=== PATIENT | female | born 1990 | race Caucasian/White ===

== ENCOUNTER 2017-07-28 05:36 | Inpatient (IN) ==
[2017-07-28] MEDS ORDERED: D5LR 1,000 ML IV PRN (05:47)
[2017-07-28] MEDS ORDERED: OXYTOCIN DRIP 30 UNIT/500 ML ML IV PRN (05:47)
[2017-07-28] MEDS ORDERED: CALCIUM CARBONATE Chewable 500mg TABLET PO PRN ×2 (05:47→14:25)
[2017-07-28] MEDS ORDERED: LIDOCAINE 1% (10mg/ml) 2mL INJ PF SDV ID PRN (05:47)
[2017-07-28] MEDS ORDERED: METHYLERGONOVINE 0.2 MG/ML INJECTION IM PRN (05:47)
[2017-07-28] MEDS ORDERED: ACETAMINOPHEN 500 MG TABLET PO PRN ×2 (05:47→14:25)
[2017-07-28] MEDS ORDERED: CARBOPROST 250 MCG/ML INJECTION IM PRN (05:47)
[2017-07-28] MEDS ORDERED: MAG-AL + SIM ORAL LIQUID 30ml PO PRN ×2 (05:47→14:25)
[2017-07-28] MEDS ORDERED: D5LR 1,000 ML IV SCH (06:00)
[2017-07-28] MEDS: LR 1,000 ML IV PRN ×3 (06:14→11:48)
[2017-07-28 06:39] VITALS: BMI 43.8
--- NOTE | 2017-07-28 07:19 | Anesthesia Preoperative Report ---
Anesthesia Epidural/Spinal Rec - Date and Time Date: 07/28/17 Procedure: Labor Epidural Plan: Epidural - Vital Signs Vital Signs: Temperature 98.5 F 07/28/17 06:45 Pulse Rate 100 07/28/17 06:45 Respiratory Rate 16 07/28/17 06:45 Blood Pressure 113/58 07/28/17 06:45 Pulse Oximetry 98 07/28/17 06:45 /Para: P:4 - Medictaions & Allergies Inpatient Medications: Current Medications Acetaminophen (Tylenol) 500 - 1,000 mg PO Q4H PRN PRN Reason: Pain Al Hydroxide/Mg Hydroxide (Maalox Plus) 30 ml PO Q3H PRN PRN Reason: Indigestion Calcium Carbonate (Tums) 500 - 1,000 mg PO Q2H PRN PRN Reason: Indigestion Carboprost Tromethamine (Hemabate) 250 mcg IM O PRN PRN Reason: .Downtime Dextrose/Lactated Ringer's (Dextrose 5%-Lactated Ringers) 1,000 mls @ 125 mls/ hr IV .Q8H DAWIT Last Admin: 07/28/17 06:15 Dose: 125 mls/hr Lactated Ringer's (Lactated Ringers) 1,000 mls @ 999 mls/hr IV .Q1H1M PRN Last Admin: 07/28/17 06:14 Dose: 999 mls/hr Oxytocin (Pitocin Drip) 30 unit in 500 mls @ 2 mls/hr IV .Q24H PRN; Protocol PRN Reason: Induction/Augmentation Last Admin: 07/28/17 06:16 Dose: 2 mls/hr Dextrose/Lactated Ringer's (Dextrose 5%-Lactated Ringers) 1,000 mls @ 125 mls/ hr IV .Q8H PRN PRN Reason: Labor Lidocaine HCl (Xylocaine-Mpf 1% Vial) 0.2 mg ID O PRN PRN Reason: IV Start Methylergonovine Maleate (Methergine) 0.2 mg IM O PRN Misoprostol (Cytotec) 800 mcg GA ONCE PRN Allergies/Adverse Reactions: Allergies Allergy/AdvReac Type Severity Reaction Status Date / Time No Known Drug Allergies Allergy Unknown Unverified 02/23/17 18:18 - Home Medications Home Medications: Home Medications Medication Instructions Recorded Confirmed Type Vits W-Ca,Fe,Fa(<1MG) 1 tab PO DAILY #0 04/08/10 History () Amox Tr/Potassium Clavulanate 1 tab PO BID #0 01/25/13 History (Amox Tr-K Clv 500-125 Mg Tab) Ondansetron HCl [Zofran] 4 mg PO PRN #0 01/25/13 History - Medical History Gastrointestional: Reports: Morbid Obesity Neuro/Musculoskeletal: Reports: Depression ( depression) Renal/Endocrine: Reports: Thyroid Disease (Hypothyroid) Other History: Reports: Now - Surgical History GI Surgery/Treatments: Reports: Colonoscopy (2013) Reproductive Surgery/Treatment: Reports: Other (LEEP simple) DENIES: Section Anesthesia Reactions: None Hx Family Anesthesia Reaction: No History of Motion Sickness: No - Social History Smoking Status: Never smoker Second Hand Exposure: No Substance Use Type: does not use Alcohol Intake Frequency: does not drink - Pertinent Findings Lab Data: CBC and BMP 07/28/17 06:08 EKG Rhythm: Normal Sinus Rhythm - Physical Exam Respiratory Exam: lungs clear Cardiovascular Exam: regular rate and rhythm - Airway Assessment Teeth: other (tongue piercing) Overall Assessment: no airway concerns - ASA ASA Score: 2 - Discussion Discussion: Discussed risks/options/alternatives of anesthesia and questions answered. Patient consents. Nursing pain assessment noted. Attestation Statement: Prior to the delivery of any anesthetic medication, I examined the patient, developed the plan, obtained the patient's consent and discussed the risk and benefits of the procedure with the patient/guardian.
[2017-07-28] MEDS ORDERED: ROPIVACAINE 1% 10MG/ML INJ 200 MG, SUFentanil 50 MCG in NS 100 ML EPI PRN (09:48)
[2017-07-28] MEDS ORDERED: NALOXONE 0.4 MG/ML INJECTION IVP PRN (09:48)
[2017-07-28] MEDS ORDERED: DiphenhydrAMINE 50 MG/ML INJECTION IVP PRN (09:48)
[2017-07-28] MEDS: ONDANSETRON 4 MG/2 ML INJECTION IVP PRN ×2 (10:35→19:52)
[2017-07-28] MEDS ORDERED: IBUPROFEN 800 MG TABLET PO PRN (14:25)
[2017-07-28] MEDS ORDERED: OXYTOCIN DRIP 30 UNIT/500 ML ML IV SCH (14:25)
[2017-07-28] MEDS ORDERED: DiphenhydrAMINE 25 MG CAPSULE PO PRN (14:25)
[2017-07-28] MEDS ORDERED: HYDROCODONE/APAP 5mg/325mg TABLET PO PRN (14:25)
[2017-07-28] MEDS ORDERED: HYDROCORTISONE 2.5% CREAM 30gm RECTALLY PRN (14:25)
[2017-07-28] MEDS ORDERED: BENZOCAINE 20% SPRAY 0.5 ML MM ONE (14:25)
[2017-07-28] MEDS ORDERED: LR 1,000 ML IV SCH (16:30)
[2017-07-28] MEDS ORDERED: METOCLOPRAMIDE 10mg/2ml INJECTION IVP PRN (16:30)
[2017-07-28] MEDS ORDERED: ONDANSETRON 4 MG/2 ML INJECTION IVP PRN (16:30)
[2017-07-28] MEDS ORDERED: HYDROMORPHONE 2 MG/ML INJECTION IVP PRN (16:30)
[2017-07-28] MEDS ORDERED: PROPOFOL 500 MG/50 ML VIAL IV ONE ×2 (16:37→17:05)
[2017-07-28] MEDS ORDERED: BUPIVACAINE 0.25% (2.5mg/ml) PF 30ml INJECTION ONE (16:37)
[2017-07-28] MEDS ORDERED: BUPIVACAINE 0.25% (2.5mg/ml) PF 30ml INJECTION ID ONE (16:42)
--- NOTE | 2017-07-28 16:51 | Labor and Delivery Note ---
DIAGNOSES 1. 26-year-old white female, G5, P4 at 39.0 weeks gestational age. 2. Pitocin induction of labor for history of macrosomia. 3. Hypothyroid. 4. Epidural anesthesia. 5. AROM. 6. Spontaneous vaginal delivery. 7. Male , 8/9 Apgars, 38 24 g (Santosh Villarreal). 8. Desires permanent sterilization. DESCRIPTION This is a patient of mine I brought in for induction secondary to history of macrosomia. She is 39.0 weeks gestational age. Pitocin reached a maximum of 20 mu/min. AROM occurred after her epidural and she progressed in dilation until she was complete and ready to push. With a very short amount of pushing we had a delivery in the OA position. was bulb suctioned after delivery of the head and then again after delivery of the body. Cord was doubly clamped and cut and the 's father cut the cord. The infant initially went to the mother's abdomen. Perineum was intact. The placenta delivered spontaneously and was intact. The patient desires tubal ligation so we will be doing that shortly. Maternal blood type is O-negative, so a tube of blood was obtained. GBS was negative and rubella was immune. MTDD
[2017-07-28] MEDS ORDERED: LIDOCAINE 2%/EPI 1:200,000 20ml SDV PF ONE (17:06)
--- NOTE | 2017-07-28 17:37 | OB/GYN Procedure Note ---
Operative Note Date of Surgery: 07/28/17 Preoperative Diagnosis:desires sterilization Postoperative Diagnosis:same Procedure: Modified [place] PPTL Surgeon:Sebastien Stacy MD In Flight Refueling Operator: EBL: min Anesthesia: epid by monique cardenas Complications:none
[2017-07-28] MEDS ORDERED: MORPHINE SULFATE PF 5mg/10ml INJ (Duramorph) ONE (17:38)
[2017-07-28] MEDS ORDERED: NEOMYCIN/POLYMYXIN/BACITRACIN OINT PACKET TP PRN (17:59)
--- NOTE | 2017-07-28 18:11 | Anesthesia Postoperative Note ---
- Date and Time Date: 07/28/17 Time: 18:11 - Status Patient Participated in Evaluation: Patient Participated in Person Vital Signs: Temperature 98.2 F 07/28/17 17:44 Pulse Rate 94 07/28/17 18:00 Respiratory Rate 20 07/28/17 18:00 Blood Pressure 114/60 07/28/17 18:00 Pulse Oximetry 98 07/28/17 18:00 Respiratory Function: Airway Patent Cardiovascular Function: Regular Pulse EKG: Sinus Rhythm Mental Status: Alert and Oriented Pain Intensity: 3 Hydration: IV Infusing Complications During Recover: None Apparent - Follow-Up Instructions Instructions: Per Surgeon
[2017-07-28] MEDS ORDERED: DimenhyDRINATE 50 MG in LR 1,000 ML IV SCH (21:45)
[2017-07-29] MEDS ORDERED: DOCUSATE CALCIUM 240 MG CAPSULE PO SCH (09:00)
--- NOTE | 2017-07-29 09:17 | OB/GYN Progress Note ---
OB-PP Progress Note - General PPD1 Maternal Group B Strep: Negative Maternal blood type: O- Maternal Rubella Status: Immune General: Baby B neg - Subjective Date: 07/29/17 Lochia: Minimal Pain: controlled Voiding: voiding - Objective Vital Signs: Last Vital Signs Temp 98 F 07/29/17 02:20 Pulse 83 07/29/17 02:20 Resp 16 07/29/17 02:20 BP 120/67 07/29/17 02:20 Pulse Ox 100 07/29/17 02:20 General: alert and oriented Abdomen: fundus firm, non-tender Incision: clean, intact, dressed Extremities: non-tender Laboratory: Laboratory Results - last 24 hr 07/28/17 07/29/17 14:25 05:26 WBC 10.7 RBC 3.69 L Hgb 10.1 L Hct 32.2 L MCV 87.3 MCH 27.4 MCHC 31.4 RDW Std Deviation 46.4 Plt Count 155 MPV 9.9 RhIG Candidate? Not a candidate - Assessment Assessment: , Tubal Ligation - Plan Plan: routine care, discharge home, continue PNV
[2017-07-29] MEDS ORDERED: DimenhyDRINATE 50 MG TABLET PO PRN (09:42)
[2017-07-29 12:08] VITALS: BP 136/76; PULSE 93; RESP 18; TEMP 97.9; O2SAT 98
--- NOTE | 2017-07-29 16:05 | Operative Note ---
DATE OF SURGERY: 06/27/2017 PREOPERATIVE DIAGNOSIS 26-year-old white female, G5, P5 immediately desiring permanent sterilization. POSTOPERATIVE DIAGNOSIS" Same. PROCEDURE: Modified [place] tubal ligation. EBL: Minimal. ANESTHESIA: Epidural catheter dosing.by Blanco Bernal CRNA SURGEON: Sebastien Stacy MD COMPLICATIONS: None. DESCRIPTION OF OPERATION Prior to starting the procedure the patient again vocalized her desire for permanent sterilization. The risks, complications and alternatives to this procedure were again reviewed and questions were answered to the Patient's satisfaction. A chance of failure is present (estimated at 1%) coupled with an increased risk of ectopics if failure occurs. The patient is aware of this and still desires to proceed. After adequate epidural anesthesia, the patient was prepped and draped in the supine position. The bladder was emptied prior to beginning the procedure. Then 0.25% Marcaine was injected in the inferior aspect of the umbilical region for additional anesthesia. Then a semilunar subumbilical incision was made with a scalpel. This was carried down to the fascia. The fascia was identified and incised transversely with the Contreras scissors. Peritoneum was then identified and grasped with a Evelyne clamp and entered with a Metzenbaum scissors. The extra-small Jeremias retractor was used due to the patient's BMI. [employer] retractors were used. The patient was then placed in slight Trendelenburg position and rolled to the left side. The right fallopian tube was then identified and grasped with a Salvatore clamp and followed in a serial fashion to its fimbriated end to confirm tube identification. Then in a stairstep fashion it was followed back to the mid isthmic portion of the tube. The mid isthmic portion of the tube was elevated through the incision forming a knuckle of the tube and this knuckle was initially ligated using 2-0 chromic. Then a Evelyne clamp was passed through the meso of the tube and the proximal and distal aspects of the knuckle of the tube were ligated using 2-0 silk sutures. The knuckle of the tube was then transected and removed and sent to surgical pathology for lumen confirmation. Hemostasis was confirmed. Then 0.25% Marcaine was injected in the ligated end of the knuckle of the tube for additional anesthesia. The tube was then allowed to return to the abdominal wall after the fimbriated end was again visualized to confirm identification. Once the tube was replaced into the abdominal cavity the patient was rolled to the other side and the procedure was repeated in an identical fashion on the left side. Care was taken to identify the fallopian tube prior to and after performing the procedure by visualization of the fimbriated end. Once this was completed on both sides and hemostasis was confirmed on both sides, the abdomen was then closed in layers. This was done first by closing the peritoneum in a pursestring fashion using 2-0 Vicryl. Then using 2-0 Vicryl in a running nonlocking fashion, fascia was closed. The skin was closed in a subcuticular fashion using 4-0 undyed Vicryl. Additional Marcaine was injected around the incision site. The patient tolerated the procedure well and went to the recovery room in stable condition. Pad, sponge and needle counts were correct. MTDD
== END 2017-07-29 14:45 | disposition home or self-care (01) | DRG 767 ==
LOC: MC 05:36
PROVIDERS: ADMIT Obstetrics & Gynecology; ATTEND Obstetrics & Gynecology